=== PATIENT | female | born 1940 ===

== ENCOUNTER → 2021-05-12 | Day surgery (SDC) | payer OTHER ==
[~2021-05-12] MED LIST: ASA81 MG PO; CARVEDILOL12.5 MG; LIPITOR20 MG PO; MIRALAX17 GM PO; MULTIPLE VITAM1 EAC2 PO; NORVASC10 MG PO; TYLENOL ARTHRI650 MG PO; ULTRAM50 MG PO; ZESTORETIC 10-1 EACH PO
== END | disposition home or self-care (01) ==
LOC: ADM 05-09 08:15 → CIR.AMB 08:15
PROVIDERS: ATTEND Surgery
DX: K40.30 Unilateral inguinal hernia, with obstruction, without gangrene, not specified as recurrent (principal); Z88.8 Allergy status to other drugs, medicaments and biological substances; I10 Essential (primary) hypertension; E16.2 Hypoglycemia, unspecified; M19.90 Unspecified osteoarthritis, unspecified site